=== PATIENT | male | born 1980 | race Caucasian/White ===

== ENCOUNTER → 2016-10-03 | Emergency (ER) | payer OTHER ==
[~2016-10-03] MED LIST: ACETAMINOPHEN 325 MG TABLET (FP) ONE; ACETAMINOPHEN 500 MG TABLET (FP) PO ONE; AZITHROMYCIN 250 MG TABLET (FP) ONE; AZITHROMYCIN 250 MG TABLET (FP) PO ONE; IBUPROFEN 600 MG TABLET (FP) PO ONE
[2016-10-03 08:18] VITALS: BMI 34.1
--- NOTE | 2016-10-03 08:21 | PDOC ---
History of Present Illness - General Chief Complaint: Cold Symptoms Stated Complaint: FEVER Past History - Past Medical History Allergies/Adverse Reactions: Allergies Allergy/AdvReac Type Severity Reaction Status Date / Time No Known Allergies Allergy Verified 10/03/16 08:14 Home Medications: Ambulatory Orders NK [No Known Home Medication] 04/10/15 Other medical history: denies - Psycho/Social/Smoking Cessation Hx Suicidal Ideation: No Smoking History: Current some day smoker Have you smoked in the past 12 months: Yes Number of Cigarettes Smoked Daily: 2 Information on smoking cessation initiated: No Hx Alcohol Use: No Drug/Substance Use Hx: No Substance Use Type: None *Physical Exam - Vital Signs Last Vital Signs Temp Pulse Resp BP Pulse Ox 102.8 F H 137 H 20 141/75 94 L 10/03/16 08:14 10/03/16 08:14 10/03/16 08:14 10/03/16 08:14 10/03/16 08:14
--- NOTE | 2016-10-03 08:42 | PDOC ---
History of Present Illness - General Chief Complaint: Cold Symptoms Stated Complaint: FEVER Time Seen by Provider: 10/03/16 08:26 History Source: Patient Exam Limitations: No Limitations - History of Present Illness Initial Comments: 10/03/16 08:48 35-year-old male presents to the emergency room with complaints of fever for the past 3 days associated with sore throat and cough. Patient now complaining of frontal headache and bilateral ear pain. Patient denies recent travel, recent sick contacts, medical history, recent dental work, recent illness. Patient does state smokes cigarettes occasionally but denies history of bronchitis. Timing/Duration: reports: yesterday Severity: reports: moderate Possible Cause: Yes: no prior episodes Associated Symptoms: reports: cough, fever/chills Past History - Travel Traveled outside of the country in the last 30 days: No Close contact w/someone who was outside of country & ill: No - Past Medical History Allergies/Adverse Reactions: Allergies Allergy/AdvReac Type Severity Reaction Status Date / Time No Known Allergies Allergy Verified 10/03/16 08:39 Home Medications: Ambulatory Orders NK [No Known Home Medication] 04/10/15 Other medical history: denies - Psycho/Social/Smoking Cessation Hx Suicidal Ideation: No Smoking History: Current some day smoker Have you smoked in the past 12 months: Yes Number of Cigarettes Smoked Daily: 1 Information on smoking cessation initiated: No Hx Alcohol Use: No Drug/Substance Use Hx: No Substance Use Type: None Patient Lives Alone: No Lives with/in: spouse/SO Review of Systems - Review of Systems Able to Perform ROS?: Yes Constitutional: Yes: Symptoms Reported, Chills, Fever. No: Loss of Appetite, Weakness HEENTM: Yes: Ear Pain, Nose Congestion, Throat Pain Respiratory: Yes: Cough Cardiac (ROS): No: Symptoms Reported ABD/GI: No: Symptoms Reported : No: Symptoms Reported Musculoskeletal: No: Symptoms Reported Integumentary: No: Symptoms Reported Neurological: Yes: Headache (frontal) *Physical Exam - Vital Signs Last Vital Signs Temp Pulse Resp BP Pulse Ox 102.8 F H 137 H 20 141/75 94 L 10/03/16 08:14 10/03/16 08:14 10/03/16 08:14 10/03/16 08:14 10/03/16 08:14 - Physical Exam General Appearance: Yes: Nourished, Appropriately Dressed. No: Apparent Distress HEENT: positive: EOMI, RUBINA, TMs Normal, Pharyngeal Erythema, Tonsillar Exudate (minimal to 3 + right tonsil) Neck: positive: Supple, Lymphadenopathy (R), Lymphadenopathy (L) Respiratory/Chest: positive: Lungs Clear, Normal Breath Sounds. negative: Respiratory Distress, Accessory Muscle Use Cardiovascular: positive: Regular Rhythm, Tachycardia. negative: Murmur Gastrointestinal/Abdominal: positive: Soft. negative: Tenderness Extremity: positive: Normal Capillary Refill Integumentary: positive: Normal Color, Warm, Moist Neurologic: positive: Motor Strength 5/5 (ambulatory) ED Treatment Course - Medications Given in the ED: ED Medications Discontinued Medications Generic Name Dose Route Start Last Admin Trade Name Freq PRN Reason Stop Dose Admin Acetaminophen 975 mg 10/03/16 08:26 10/03/16 08:31 Tylenol - PO 10/03/16 08:27 975 mg ONCE ONE Administration Medical Decision Making - Medical Decision Making 10/03/16 08:44 Patient with fever, sore throat, cough and headache. Patient on exam had posterior pharyngeal erythema and mild exudate to the right tonsil along with adenopathy. Patient ordered for rapid strep and Tylenol secondary to noted fever in triage. Patient states has no Motrin or Tylenol home which I recommended he purchase. 10/03/16 09:35 + for strep. Patient's repeat temperature is 102.8 with a heart rate of 124 approximately one hour after being given Tylenol. Patient will be given a pressure of water, Motrin and azithromycin 500. Patient will then be discharged. *DC/Admit/Observation/Transfer Diagnosis at time of Disposition: Acute streptococcal pharyngitis - Discharge Dispostion Disposition: HOME Condition at time of disposition: Improved - Patient Instructions Printed Discharge Instructions: DI for Strep Throat Additional Instructions: Please continue to take Motrin and Tylenol as needed for fever and pain control. Next and you have been given your first dose of antibiotics here in the ER and do not need to repeat until tomorrow which you will continue for the next 4 days. Push fluids and rest
[2016-10-03 09:09] VITALS: BP 115/75; PULSE 134; TEMP 103
== END | disposition home or self-care (01) ==
LOC: JER 08:12
DX: J02.0 Streptococcal pharyngitis (principal)
CPT/HCPCS: 87070; 87077; 87430; 99281-25

== ENCOUNTER 2017-09-03 14:13 | Emergency (ER) | payer OTHER ==
[2017-09-03 14:18] VITALS: BP 112/72; PULSE 90; TEMP 98.2; BMI 34.1
[2017-09-03] MEDS ORDERED: IBUPROFEN 600 MG TABLET (FP) PO ONE ×2 (14:42→14:43)
--- NOTE | 2017-09-03 14:47 | PDOC ---
History of Present Illness - General Chief Complaint: Back Pain Stated Complaint: BACK PAIN Time Seen by Provider: 09/03/17 14:26 - History of Present Illness Initial Comments: 36-year-old male presents for evaluation of 2 months of atraumatic onset of lower back pain without radicular symptoms. Pain is described as achy exacerbated with activity relieved with rest. No incontinence. 09/03/17 14:43 Past History - Past Medical History Allergies/Adverse Reactions: Allergies Allergy/AdvReac Type Severity Reaction Status Date / Time No Known Allergies Allergy Verified 10/03/16 08:39 Home Medications: Ambulatory Orders Ibuprofen [Motrin -] 600 mg PO TID #30 tablet 09/03/17 COPD: No - Immunization History Immunization Up to Date: Yes - Suicide/Smoking/Psychosocial Hx Smoking History: Never smoked Have you smoked in the past 12 months: No Number of Cigarettes Smoked Daily: 1 Information on smoking cessation initiated: No Hx Alcohol Use: No Drug/Substance Use Hx: No Substance Use Type: None Review of Systems - Review of Systems Musculoskeletal: Yes: Back Pain All Other Systems: Reviewed and Negative *Physical Exam - Vital Signs Last Vital Signs Temp Pulse Resp BP Pulse Ox 98.2 F 90 16 112/72 100 09/03/17 14:16 09/03/17 14:16 09/03/17 14:16 09/03/17 14:16 09/03/17 14:16 - Physical Exam Comments: Lumbar spine skin color and temperature are normal. There is decreased painful range of motion. 5 out of 5 strength in bilateral lower extremities. Patella and Achilles reflexes are 2+ and symmetric bilaterally. There is no clonus. Straight leg raise test is negative bilaterally. Thighs and calves are soft and nontender. There are no gross sensory motor deficits. Neurovascularly intact. 09/03/17 14:44 Medical Decision Making - Medical Decision Making This is most likely a lumbar strain. He can follow with orthopedics in the next day or so. 09/03/17 14:44 *DC/Admit/Observation/Transfer Diagnosis at time of Disposition: Low back strain - Discharge Dispostion Disposition: HOME Condition at time of disposition: Stable Decision to Admit order: No - Referrals Referrals: Fabián Solomon [Primary Care Provider] - - Patient Instructions Printed Discharge Instructions: Back Pain (Alternative Therapy), DI for Back Strain or Sprain Additional Instructions: Follow-up with orthopedics in the next day or so. Return to the emergency room if symptoms worsen or go unresolved prior to follow-up. - Post Discharge Activity
== END 2017-09-03 14:48 | disposition home or self-care (01) ==
LOC: JERFT 14:13
DX: S39.012A Strain of muscle, fascia and tendon of lower back, initial encounter (principal); X58.XXXA Exposure to other specified factors, initial encounter; Y93.89 Activity, other specified; Y92.89 Other specified places as the place of occurrence of the external cause; Y99.8 Other external cause status
CPT/HCPCS: 99281-25